=== PATIENT | male | born 1950 | race Caucasian/White ===

== ENCOUNTER → 2017-01-26 | Outpatient (CLI) | payer MEDICARE, BC ==
[2017-01-26 09:27] LABS: Blood Urea Nitrogen 19 mg/dL (9-20); Non-African American GFR(MDRD) >60 (>60 ml/min/1.73 sqM)
--- NOTE | 2017-01-26 10:59 | MR ---
EXAMINATION TYPE: MR lumbar spine wo/w con DATE OF EXAM: 01/26/2017 10:44 AM COMPARISON: NONE HISTORY: osteoarthritis of spine w/radiculopathy per order, prior surgery 1989 with new back pain cau sing left leg pain for 4 weeks per patient. TECHNIQUE: Multiplanar, multisequence images of the lumbar spine is performed without and with IV contrast, util izing 20 mL intravenous MultiHance FINDINGS: Sagittal images of the lumbar spine show vertebral body heights and alignment to appear sat isfactory. There is multilevel disc desiccation. There is advanced disc space narrowing L3-L4 level. There is mild to moderate anterior spurring with heterogeneous increased T1 and T2 signal consistent with Modic type II degenerative change at this level most pronounced anteriorly. There is moderate di sc space narrowing L2-L3 and L4-L5 levels. There is mild disc space narrowing L5-S1 level. Multilevel vacuum disc phenomenon is seen in the mid to lower lumbar spine. Multilevel small posterior disc her niations are seen at these levels on sagittal images. The conus medullaris is normal in position and signal ending at mid L1 vertebral body level. Additional mild multilevel anterior spurring. There is additional heterogeneous endplate changes most pronounced anteriorly at T11-T12 level. No suspicious postcontrast enhancement is seen. Axial images show the T12-L1 level to appear within normal limits. Axial images at L1-L2 level show mild broad disc bulge and mild facet degenerative changes bilaterall y but spinal canal is preserved and bilateral neural foramina are patent. Axial images at L2-L3 level show mild/moderate broad-based posterior disc protrusion mildly effacing anterior thecal sac and mild facet degenerative changes bilaterally. There is mild bilateral anterior inferior neural foraminal narrowing at this level identified. Axial images at L3-L4 level show mild to moderate facet degenerative changes and ligament flavum hype rtrophy effacing posterior lateral thecal sac on axial image 13. There is moderate broad-based aircraft launch and recovery technician ior disc protrusion effacing anterior thecal sac. There is mild to moderate bilateral anterior inferi or neural foraminal narrowing at this level identified. Axial images at L4-L5 level show moderate facet degenerative changes and ligamentum flavum hypertroph y with effacement of the posterior lateral thecal sac bilaterally on axial image 8. There is mild bro ad disc bulge mildly effacing anterior thecal sac. There is mild bilateral anterior inferior neural f oraminal narrowing at this level identified. Right-sided laminectomy defect is seen best on axial saravanan ge 6. Axial images at L5-S1 level show mild to moderate facet degenerative changes bilaterally. There is le ft paracentral disc protrusion. There is mild to moderate bilateral anterior inferior neural foramina l narrowing at this level identified. There is partial visualization of a round T2 hyperintense lesion upper pole right kidney measuring at least 6.8 cm anterior posterior dimension likely reflecting large simple cyst. Consider renal ultras ound correlation due to size and incomplete visualization on MRI. There are additional scattered subc entimeter simple appearing cysts seen bilaterally. IMPRESSION: Multilevel degenerative change in the mid to lower lumbar spine as detailed above. Right- sided laminectomy defect is noted in lower lumbar spine. No suspicious enhancement is noted. Attentio n to right kidney upper pole level as noted above.
== END | disposition home or self-care (01) ==
LOC: RADMRIMAIN 08:49
PROVIDERS: ATTEND Physician Assistant
DX: M47.26 Other spondylosis with radiculopathy, lumbar region (principal); Z98.890 Other specified postprocedural states
CPT/HCPCS: 82565; 84520; 72158; A9577

== ENCOUNTER → 2020-06-24 | Outpatient (CLI) | payer MEDICARE ==
[2020-06-24 18:25] LABS: African American GFR (CKD) >90 (>60 ml/min/1.73 sqM); Blood Urea Nitrogen 18 mg/dL (9-20); Non-African American GFR(CKD) >90 (>60 ml/min/1.73 sqM)
--- NOTE | 2020-06-24 23:31 | CT ---
EXAMINATION TYPE: CT abdomen pelvis w con DATE OF EXAM: 06/24/2020 COMPARISON: None INDICATION: hematuria DLP: 1908 mGycm, Automated exposure control for dose reduction was used. CONTRAST: 100 mL of Isovue 300. Study performed without Oral Contrast TECHNIQUE: Axial images were obtained from above the diaphragm to the pubic rami in the axial plane a t 5 mm thick sections. Reconstructed images are reviewed on the computer in the coronal plane. FINDINGS: Limited CT sections are obtained the lung bases. The lung bases are clear. CT ABDOMEN: Liver: There is a 0.9 cm cyst at superior right lobe liver. A 1.4 cm cyst measuring 16 Hounsfield uni ts is in the mid posterior lateral right lobe liver. Spleen: Normal Pancreas: Normal Adrenal glands: The adrenal glands are normal. Gallbladder: Normal Kidneys: No masses are evident. No hydronephrosis is present. There is a 9.2 cm cyst measuring 7 Ho unsfield units in the superior right kidney. Couple of tiny cortical renal cysts are present on the r ight kidney. There are nonobstructing renal stones within the left inferior pole kidney measuring 0.8 -0.7 cm. Nonobstructing posterior lateral left renal stone measures 0.4 cm mid left kidney. Delayed images were obtained through the kidneys, cortical renal cysts are better delineated on the delayed i mages. Aorta: Vascular calcification is within the aorta. Inferior vena cava: Normal. CT PELVIS: There is a periumbilical hernia containing mesenteric fat. Opening through the abdominal w all is 2.5 cm. Structure fat-containing inguinal hernias are present bilaterally slightly larger on t he left. Loops of bowel within the abdomen and pelvis are normal. There are loops of bowel which are incom pletely distended or lack oral contrast limiting their evaluation. Appendix: Not identified. No suspicious tubular structures or inflammatory changes are evident. Urinary bladder: Normal. Genitourinary structures: Status somewhat prominent. Osseous structures: No suspicious lytic or sclerotic lesions. Degenerative disc changes present L5-S1 . Additional degenerative disc changes are within the mid lumbar spine. IMPRESSIONS: 1. Large right renal cyst measuring 7 Hounsfield units suggestive for a simple cyst. Additional smal l cortical renal cysts. Present. 2. Nonobstructing left renal stones. Probable hepatic cysts. 3. Fat-containing inguinal and periumbilical hernias.
== END | disposition home or self-care (01) ==
LOC: RADCTMAIN 17:36
PROVIDERS: ATTEND Urology
DX: N28.1 Cyst of kidney, acquired (principal); N20.0 Calculus of kidney; K40.90 Unilateral inguinal hernia, without obstruction or gangrene, not specified as recurrent; K42.9 Umbilical hernia without obstruction or gangrene; R31.0 Gross hematuria
CPT/HCPCS: 82565; 84520; 74177; 36415; Q9967

== ENCOUNTER → 2020-07-16 | Outpatient (CLI) | payer MEDICARE ==
[2020-07-16 14:36] LABS: Basophils # (A) 0.1 k/uL (0-0.2); Basophils % (A) 1 %; Eosinophils # (A) 0.2 k/uL (0-0.7); Eosinophils % (A) 2 %; HCT 44.7 % (39.0-53.0); HGB 14.7 gm/dL (13.0-17.5); Lymphocytes # (A) 1.8 k/uL (1.0-4.8); Lymphocytes % (A) 28 %; MCH 28.9 pg (25.0-35.0); MCHC 32.8 g/dL (31.0-37.0); MCV 88.2 fL (80.0-100.0); Mean Platelet Volume 7.2; Monocytes # (A) 0.5 k/uL (0-1.0); Monocytes % (A) 8 %; Neutrophils # (A) 3.8 k/uL (1.3-7.7); Neutrophils % (A) 58 %; Platelet Count 214 k/uL (150-450); RBC 5.07 m/uL (4.30-5.90); RDW 12.9 % (11.5-15.5); WBC 6.6 k/uL (3.8-10.6)
[2020-07-16 14:39] LABS: African American GFR (CKD) >90 (>60 ml/min/1.73 sqM); Anion Gap 6 mmol/L; Blood Urea Nitrogen 15 mg/dL (9-20); Carbon Dioxide 27 mmol/L (22-30); Chloride 104 mmol/L (98-107); Glucose 91 mg/dL (74-99); Non-African American GFR(CKD) >90 (>60 ml/min/1.73 sqM); Potassium 3.9 mmol/L (3.5-5.1); Sodium 137 mmol/L (137-145)
== END | disposition home or self-care (01) ==
LOC: LABPAT 13:10
PROVIDERS: ATTEND Urology
DX: Z01.818 Encounter for other preprocedural examination (principal); N20.0 Calculus of kidney; I10 Essential (primary) hypertension
CPT/HCPCS: 36415; 80048; 85025; 93005

== ENCOUNTER 2020-07-23 07:09 | Day surgery (SDC) | payer MEDICARE ==
[2020-07-22 12:50] VITALS: BMI 33.1
--- NOTE | 2020-07-23 06:34 | P.GSHP ---
History of Present Illness H&P Date: 07/16/20 Chief Complaint: Gross hematuria The patient is a 69-year-old white male with no prior history of urolithiasis. He recently presented with gross hematuria. CT scan revealed left renal calculi measuring up to 8 mm in size. This is presumed to be the source of the hematuria. He has elected to undergo ureteroscopic removal of the calculi. - Constitutional Constitutional: Denies chills, Denies fever - Genitourinary (Female) Genitourinary: Reports hematuria, Denies dysuria, Denies flank pain Past Medical History - Past Family History Mother Family Medical History: Cancer Medications and Allergies Home Medications Medication Instructions Recorded Confirmed Type Amoxicillin/Potassium Clav 1 tab PO Q12HR 07/22/20 07/22/20 History [Augmentin 875-125 Tablet] Aspirin 81 mg PO DAILY 07/22/20 07/22/20 History Atorvastatin [Lipitor] 10 mg PO DAILY 07/22/20 07/22/20 History Fluticasone Nasal [place] [Flonase 2 spr EA NOSTRIL DAILY 07/22/20 07/22/20 History Nasal [place]] Ibuprofen [Motrin] 800 mg PO Q8H PRN 07/22/20 07/22/20 History Losartan [Cozaar] 50 mg PO HS 07/22/20 07/22/20 History Salmeterol 50 mcg [Serevent Diskus] 1 puff INHALATION HS 07/22/20 07/22/20 History Vit C/E/Zn/Coppr/Lutein/Zeaxan 1 each PO DAILY 07/22/20 07/22/20 History [Preservision Areds 2 Softgel] amLODIPine [Norvasc] 10 mg PO HS 07/22/20 07/22/20 History hydroCHLOROthiazide [Hydrodiuril] 12.5 mg PO DAILY 07/22/20 07/22/20 History Allergies Allergy/AdvReac Type Severity Reaction Status Date / Time No Known Allergies Allergy Verified 07/22/20 12:57 Surgical - Exam - General well developed, well nourished, no distress - Neck no masses, trachea midline - Respiratory normal respiratory effort - Abdomen Abdomen: soft, non tender, no guarding, no rigid, no rebound - Genitourinary normal penis with no external lesions, testicles non-tender - Psychiatric oriented to time, oriented to person, oriented to place, speech is normal, memory intact Results - Imaging CT scan - abdomen: report reviewed, image reviewed Assessment and Plan (1) Calculus of kidney Status: Acute Code(s): N20.0 - CALCULUS OF KIDNEY SNOMED Code(s): 86608240 Plan: Cystoscopy, left ureteroscopy with Holmium laser lithotripsy, possible stone basketing, left ureteral stent insertion. The patient requests that a string be attached to the stent if appropriate. The procedure is been reviewed in detail with the patient. He has been made aware of potential risks, which include anesthesia, bleeding, infection, and ureteral injury. Given the stone burden, he is aware that he may require a secondary procedure.
[~2020-07-23 07:09] MED LIST: DEXAMETHASONE SOD PHOSPHATE 10 MG/ML 1 ML VIAL IV ONE; LACTATED RINGERS 1,000 ML IV SCH; LIDOCAINE 1% (10MG/ML) FOR IV START INTRADERMA PRN; MORPHINE SULFATE 2 MG/ML SYRINGE IV PRN; ONDANSETRON 4 MG/2 ML VIAL IVP PRN
[2020-07-23 07:36] VITALS: RESP 16
--- NOTE | 2020-07-23 07:41 | XR ---
EXAMINATION TYPE: XR KUB DATE OF EXAM: 07/23/2020 7:24 AM CLINICAL HISTORY: Left-sided kidney stones, presurgical study. TECHNIQUE: Two supine KUB images of the abdomen are obtained. COMPARISON: CT abdomen and pelvis June 24, 2020 FINDINGS: There are persistent 2 lower pole left renal calculi measuring up to 8 mm in size long axis redemonstrated. No right-sided nephrolithiasis. Bulging of the upper to mid pole lateral right renal cortex corresponds with partially exophytic large simple thin-walled cyst. Right-sided pelvic phlebo liths are redemonstrated. Overall nonobstructive bowel gas pattern. Multilevel spurring in the spine redemonstrated IMPRESSION: As above.
[2020-07-23] MEDS ORDERED: fentaNYL (PF) 50 MCG/ML 2 ML AMP ONE (09:19)
[2020-07-23] MEDS ORDERED: ROCURONIUM BROMIDE 10 MG/ML 5 ML VIAL IV ONE (09:19)
[2020-07-23] MEDS ORDERED: SUCCINYLCHOLINE CHLORIDE 100 MG/5 ML SYR IV ONE (09:19)
[2020-07-23] MEDS ORDERED: PROPOFOL 10 MG/ML 20 ML VIAL IV ONE (09:19)
[2020-07-23] MEDS ORDERED: LIDOCAINE 1% INJ 10MG/ML (20 ML MDV) ONE (09:19)
[2020-07-23] MEDS ORDERED: MIDAZOLAM 2 MG/2 ML VIAL ONE (09:19)
[2020-07-23] MEDS ORDERED: IOPAMIDOL-370 50ML BTL MISCELLANE ONE (09:50)
[2020-07-23 11:12] VITALS: TEMP 97.2
--- NOTE | 2020-07-23 11:16 | P.OP ---
Date of Procedure: 07/23/20 Preoperative Diagnosis: Left renal calculi Postoperative Diagnosis: Same, Left UPJ obstruction Procedure(s) Performed: Cystoscopy, balloon dilation of left ureteropelvic junction, left ureteroscopy with Holmium laser lithotripsy, left ureteral stent insertion Anesthesia: GETA Surgeon: Jimi Troncoso Estimated Blood Loss (ml): 20 IV fluids (ml): 1,300 Pathology: none sent Condition: stable Disposition: PACU Indications for Procedure: The patient is a 69-year-old white male with no prior history of urolithiasis. He recently presented with gross hematuria. CT scan revealed left renal calculi measuring up to 8 mm in size. This is presumed to be the source of the hematuria. He has elected to undergo ureteroscopic removal of the calculi. Operative Findings: 1) Small caliber ureter with left UPJ obstruction. 2) 4-5 mm left mid pole calculus, 2 left lower pole calculi measuring 7-8 mm in size. All fragmented completely. Description of Procedure: The patient was taken to the operating room and placed in the dorsolithotomy position, with legs supported in Eren stirrups. The external genitalia was prepped and draped sterilely. The 30 lens was used to introduce the 21-Sinhala Belcher cystoscopic sheath through the urethra and into the bladder under direct vision. The prostatic urethra showed evidence of lateral lobe enlargement with visual occlusion. The bladder was examined in its entirety. Both ureteral orifices were normal anatomic location and configuration, and clear urine effluxed from both. No tumors or foreign bodies were seen. A 0.038 inch Glidewire was passed through the cystoscope. The left ureteral orifice was cannulated, and the Glidewire was advanced up to the left renal pelvis. An 11/13-Sinhala ureteral access catheter was passed over the wire, up to the proximal ureter. The Belcher Litigainra flexible ureteroscope was passed through the ureteral access catheter sheath. The ureter showed evidence of a mucosal tear resulting from the ureteral access catheter. The UPJ was small in caliber, and would not allow passage of the ureteroscope into the renal pelvis. Therefore, the Glidewire was passed through the ureteroscope, which was removed, and an 18-Sinhala balloon dilating catheter was used to dilate the UPJ. Ureteroscopy was then performed. Each calyx was examined. A 4-5 mm calculus was located within a mid pole calyx. 2 lower pole calculi were identified in separate calyces, each measuring 7-8 mm in size. The 272 micron Holmium laser probe was passed through the ureteroscope, and lithotripsy was performed. All 3 calculi were fragmented completely, using a combination of dusting and fragmenting. This was done until there were no residual calculus fragments exceeding 1-2 mm in size. The Glidewire was passed through the ureteroscope, which was then removed along with the ureteral access catheter sheath. The Glidewire was backloaded into the cystoscope, which was passed into the bladder. A 26 cm, 6-Sinhala double-J ureteral stent was placed over the wire. A stent positioning was verified fluoroscopically and endoscopically. The bladder was emptied and the cystoscope removed. The patient tolerated the procedure well and was taken to the recovery room in stable condition. [facility] [place] Report: Procedure Acuity: Elective Stone Size and Location: Two 7-8 mm left lower pole renal calculi Ureteral Dilation: Balloon Dilation Ureteral Access Sheath Used: Yes Stone Sent for Analysis: No All Stones/Fragments Were Removed with a Basket: No Complications: No Preoperative Antibiotics Given: Yes Stent Placed: Yes If Stent Placed, Was String Left Attached: No If Stent Placed, When is it to be Removed: 1 month Discharge Medications: Tamsulosin
[2020-07-23] MEDS ORDERED: HYDROmorphone 0.5 MG/0.5 ML SYRINGE IVP ONE (11:34)
--- NOTE | 2020-07-23 11:42 | FL ---
Fluoroscopy HISTORY: Left kidney stones 57 seconds fluoroscopy time supplied to the referring clinician. 3 intraoperative C-arm images docum ent the procedure. See dictated report from urology.
[2020-07-23 12:36] VITALS: BP 143/81; PULSE 71
== END 2020-07-23 12:54 | disposition home or self-care (01) ==
LOC: OR 07:09
PROVIDERS: ATTEND Urology
DX: N20.0 Calculus of kidney (principal); N13.5 Crossing vessel and stricture of ureter without hydronephrosis; I10 Essential (primary) hypertension; Z80.9 Family history of malignant neoplasm, unspecified; Z79.2 Long term (current) use of antibiotics; Z79.82 Long term (current) use of aspirin; Z79.51 Long term (current) use of inhaled steroids; Z79.1 Long term (current) use of non-steroidal anti-inflammatories (NSAID); Z79.899 Other long term (current) drug therapy; Z86.19 Personal history of other infectious and parasitic diseases; Z96.653 Presence of artificial knee joint, bilateral
CPT/HCPCS: 74018; 52356; C2625; C1769; J2250; J1100; J2405; J0690; J2001; J3010; J0330; J2704; J1170; Q9967

== ENCOUNTER → 2020-09-22 | Outpatient (CLI) | payer MEDICARE ==
--- NOTE | 2020-09-22 16:32 | XR ---
EXAMINATION TYPE: XR KUB DATE OF EXAM: 09/22/2020 8:13 AM CLINICAL HISTORY: Stones. Follow-up after kidneys unremarkable. TECHNIQUE: Supine images of the abdomen and pelvis were obtained COMPARISON: Abdominal radiograph 07/23/2020. CT abdomen pelvis 06/24/2020. FINDINGS: The previously demonstrated left renal calculi on 07/23/2020 are no longer seen on current e xam. Right pelvic phlebolith redemonstrated. Redemonstrated large exophytic right renal cyst. Nonspec ific bowel gas pattern. Degenerative changes of the spine. IMPRESSION: Previously demonstrated left renal calculi are no longer seen on current exam.
== END | disposition home or self-care (01) ==
LOC: RADXRMAIN 07:53
PROVIDERS: ATTEND Urology
DX: N20.0 Calculus of kidney (principal)
CPT/HCPCS: 74018

== ENCOUNTER → 2020-09-22 | Outpatient (CLI) | payer MEDICARE ==
--- NOTE | 2020-09-22 14:59 | US ---
EXAMINATION TYPE: US kidneys/renal and bladder DATE OF EXAM: 09/22/2020 COMPARISON: 06/24/2020 CLINICAL HISTORY: 70-year-old male N20.0 CALCULUS OF KIDNEY. History of kidney stones, lithotripsy 5- 6 weeks ago TECHNIQUE: Multiple sonographic images of the kidneys and bladder are obtained. FINDINGS: EXAM MEASUREMENTS: Right Kidney: 11.8 x 5.7 x 4.9 cm Left Kidney: 12.7 x 6.9 x 5.8 cm Right Kidney: Large cyst of the upper pole measuring 9.2 x 9.4 x 10.1cm as seen on patient's prior CT . No hydronephrosis. Left Kidney: Mild hydronephrosis. Bladder: appears wnl Bilateral Jets seen: yes IMPRESSION: 1. Large 10.1 cm simple cyst of the upper pole of the right kidney. 2. Mild left-sided hydronephrosis of unclear etiology.
== END | disposition home or self-care (01) ==
LOC: RADUSWWP 08:25
PROVIDERS: ATTEND Urology
DX: N28.1 Cyst of kidney, acquired (principal); N13.30 Unspecified hydronephrosis
CPT/HCPCS: 76770

== ENCOUNTER → 2021-01-12 | Outpatient (CLI) | payer MEDICARE ==
--- NOTE | 2021-01-12 15:46 | US ---
EXAMINATION TYPE: US kidneys/renal and bladder DATE OF EXAM: 01/12/2021 COMPARISON: NONE CLINICAL HISTORY: N13.0 Hydronephrosis. known hydronephrosis EXAM MEASUREMENTS: Right Kidney: 11.7 x 5.0 x 5.9 cm Left Kidney: 12.3 x 6.2 x 6.3 cm Right Kidney: known lateral simple appearing cyst 9.6 x 9.2 x 9.2cm Left Kidney: mild hydronephrosis Bladder: wnl Bilateral Jets seen: Yes IMPRESSION: 1. Mild left hydronephrosis. 2. Large right simple renal cyst
== END ==
LOC: RADUSWWP 14:05
PROVIDERS: ATTEND Urology
DX: N13.30 Unspecified hydronephrosis (principal); N28.1 Cyst of kidney, acquired
CPT/HCPCS: 76770

== ENCOUNTER → 2021-02-05 | Outpatient (CLI) | payer MEDICARE ==
[~2021-02-05] MED LIST changes: -DEXAMETHASONE SOD PHOSPHATE 10 MG/ML 1 ML VIAL IV ONE; +FUROSEMIDE 10 MG/ML 2 ML VIAL IVP ONE; -LACTATED RINGERS 1,000 ML IV SCH; -LIDOCAINE 1% (10MG/ML) FOR IV START INTRADERMA PRN; -MORPHINE SULFATE 2 MG/ML SYRINGE IV PRN; -ONDANSETRON 4 MG/2 ML VIAL IVP PRN
--- NOTE | 2021-02-05 14:33 | NM ---
EXAMINATION TYPE: NM lasix renogram DATE OF EXAM: 02/05/2021 COMPARISON: Ultrasound 01/12/2021 HISTORY: Left hydronephrosis Following administration of 9.9 mCi Tc 99m MAG3 with 20mg Lasix. Immediate images post injection FINDINGS: Left: 58.2 %. Right: 41.8 %. Max renal flow left: 7 minutes. Max renal flow right: 41.8 minutes. Satisfactory accumulation of radiotracer within both renal collecting systems. Although there is some what blunted uptake and excretion involving the right kidney. After the administration of Lasix, ther e is prompt excretion from both collecting systems. However, there is mild prominence of the left deangelo al collecting system compatible with the recent ultrasound finding. T 1/2 left: 13.9 minutes. T 1/2 right: 25.7 minutes. IMPRESSION: 1. Reduced right renal split function study. 2. Findings suggest mild left hydronephrosis.
== END | disposition home or self-care (01) ==
LOC: RADNMMAIN 12:59
PROVIDERS: ATTEND Urology
DX: N13.30 Unspecified hydronephrosis (principal)
CPT/HCPCS: 78708; A9562

== ENCOUNTER → 2024-11-08 | Outpatient (CLI) | payer MEDICARE ==
[2024-11-08 21:43] LABS: Basophils # (A) 0.07 X 10*3/uL (0.00-0.10); Basophils % (A) 0.7 %; Eosinophils # (A) 0.14 X 10*3/uL (0.04-0.35); Eosinophils % (A) 1.4 %; HCT 48.6 % (39.6-50.0); HGB 15.3 g/dL (13.0-17.0); Lymphocytes # (A) 1.78 X 10*3/uL (0.90-5.00); Lymphocytes % (A) 17.9 %; MCH 28.2 pg (27.0-32.0); MCHC 31.5 g/dL (32.0-37.0); MCV 89.5 FL (80.0-97.0); Mean Platelet Volume 10.1 FL (9.5-12.2); NRBC Per 100 WBC 0 X 10*3/uL (0.00-0.01); Neutrophils # (A) 7.09 X 10*3/uL (1.80-7.70); Neutrophils % (A) 71.3 %; Platelet Count 302 X 10*3/uL (140-440); RBC 5.43 X 10*6/uL (4.40-5.60); RDW 13.4 % (11.5-14.5); WBC 9.95 X 10*3/uL (4.50-10.00)
== END | disposition home or self-care (01) ==
LOC: LABPAT 14:26
PROVIDERS: ATTEND Surgery
DX: Z01.818 Encounter for other preprocedural examination (principal); I44.30 Unspecified atrioventricular block; K40.90 Unilateral inguinal hernia, without obstruction or gangrene, not specified as recurrent
CPT/HCPCS: 85025; 86850; 86900; 86901; 93005

== ENCOUNTER 2024-11-18 12:10 | Day surgery (SDC) | payer MEDICARE ==
--- NOTE | 2024-11-18 07:35 | P.GSHP ---
History of Present Illness H&P Date: 11/18/24 Chief Complaint: Right inguinal hernia 74-year-old male here today for hernia repair. Patient with complaints of pain right groin with area of swelling for the last several months. Went to the ER with what sounded like a possible bowel obstruction a few months ago. No his tory of previous hernias. Non-smoker. Normal BMI. Past Medical History Past Medical History: Eye Disorder, Hearing Disorder / Deafness, Hyperlipidemia, Hypertension, Osteoarthritis (OA) Additional Past Medical History / Comment(s): MACULAR DEGENERATION, kidney stones History of Any Multi-Drug Resistant Organisms: None Reported Past Surgical History: Back Surgery, Joint Replacement Additional Past Surgical History / Comment(s): RIGHT AND LEFT TOTAL KNEE, LAMINECTOMY, left hip replaced 2023, cyst removed right clavicle Past Anesthesia/Blood Transfusion Reactions: No Reported Reaction Smoking Status: Former smoker - Past Family History Mother Family Medical History: Cancer Medications and Allergies Home Medications Medication Instructions Recorded Confirmed Type Aspirin 81 mg PO DAILY 07/22/20 11/13/24 History Atorvastatin [Lipitor] 10 mg PO DAILY 07/22/20 11/13/24 History Fluticasone Nasal [place] [Flonase 2 spr EA NOSTRIL HS 07/22/20 11/13/24 History Nasal [place]] Ibuprofen [Motrin] 800 mg PO Q8H PRN 07/22/20 11/13/24 History Losartan [Cozaar] 50 mg PO HS 07/22/20 11/13/24 History Salmeterol 50 mcg [Serevent Diskus] 1 puff INHALATION HS 07/22/20 11/13/24 History Vit C/E/Zn/Coppr/Lutein/Zeaxan 1 each PO DAILY 07/22/20 11/13/24 History [Preservision Areds 2 Softgel] amLODIPine [Norvasc] 10 mg PO HS 07/22/20 11/13/24 History hydroCHLOROthiazide [Hydrodiuril] 12.5 mg PO DAILY 07/22/20 11/13/24 History Tamsulosin [Flomax] 0.4 mg PO DAILY #30 cap 07/23/20 11/13/24 Rx [place]-3/Dha/Epa/Fish Oil [Fish Oil 1 each PO DAILY 11/13/24 11/13/24 History 1,000 mg Softgel] Allergies Allergy/AdvReac Type Severity Reaction Status Date / Time procaine [From Novocain] Allergy tongue Verified 11/13/24 15:06 swelling Surgical - Exam Physical exam: General: Well-developed, well-nourished HEENT: Normocephalic, sclerae nonicteric Abdomen: Nontender, nondistended, moderate sized right inguinal hernia Extremities: No edema Neuro: Alert and oriented Assessment and Plan (1) Right inguinal hernia Narrative/Plan: 74-year-old male with right inguinal hernia. Will proceed with laparoscopic da Mike assisted repair right inguinal hernia with mesh, possible open, possible bilateral. Risks of bleeding, infection, recurrence, bladder and bowel injury, numbness, nerve injury, conversion to an open procedure were discussed with the patient. The patient understands and wishes to proceed. Status: Acute Code(s): K40.90 - UNIL INGUINAL HERNIA, W/O OBST OR GANGR, NOT SPCF RECUR SNOMED Code(s): 375811979
[~2024-11-18 12:10] MED LIST changes: -FUROSEMIDE 10 MG/ML 2 ML VIAL IVP ONE; +LIDOCAINE 1% (10MG/ML) FOR IV START INTRADERMA PRN; +MIDAZOLAM 2 MG/2 ML VIAL IV PRN; +fentaNYL (PF) 50 MCG/ML 2 ML AMP IVP PRN
[2024-11-18] MEDS: IV FLUID CONTINUATION 1,000 ML IV ONE (12:27)
[2024-11-18] MEDS: ACETAMINOPHEN TAB 500 MG TAB PO PRN (12:31)
[2024-11-18] MEDS: TAMSULOSIN 0.4 MG CAP.ER.24H PO STA ×2 (12:31→15:51)
[2024-11-18] MEDS: DEXAMETHASONE SOD PHOSPHATE 4 MG/ML 1 ML VIAL IV ONE (12:32)
[2024-11-18] MEDS: ONDANSETRON 4 MG/2 ML VIAL IVP ONE (12:32)
[2024-11-18] MEDS: HEPARIN SODIUM,PORCINE 5,000 UNIT/ML 1 ML VIAL SQ PRN (12:33)
[2024-11-18] MEDS: LACTATED RINGERS 1,000 ML IV SCH (12:33)
[2024-11-18] MEDS ORDERED: PHENYLEPHRINE-0.9% NACL SYG 1,000 MCG/10 ML SYRINGE ONE (12:45)
[2024-11-18] MEDS ORDERED: MIDAZOLAM 2 MG/2 ML VIAL ONE (12:45)
[2024-11-18] MEDS ORDERED: HYDROmorphone (PF) 1 MG/ML ONE (12:45)
[2024-11-18] MEDS ORDERED: PROPOFOL 10 MG/ML 20 ML VIAL IV ONE (12:45)
[2024-11-18] MEDS ORDERED: LIDOCAINE 1% INJ 10MG/ML (20 ML MDV) ONE (12:45)
[2024-11-18] MEDS ORDERED: fentaNYL (PF) 50 MCG/ML 2 ML AMP ONE (12:45)
[2024-11-18] MEDS ORDERED: GLYCOPYRROLATE 0.2 MG/ML 2 ML VIAL ONE (12:45)
[2024-11-18] MEDS ORDERED: SUCCINYLCHOLINE CHLORIDE 200 MG/10 ML VIAL IV ONE (12:45)
[2024-11-18] MEDS ORDERED: NEOSTIGMINE 1 MG/ML 10 ML VIAL ONE (12:45)
[2024-11-18] MEDS ORDERED: ROCURONIUM 10 MG/ML (5 ML VIAL) IV ONE (12:45)
[2024-11-18] MEDS: BUPIVACAINE (PF) 0.25% 30 ML VIAL SQ ONE (13:12)
[2024-11-18] MEDS: LACTATED RINGERS 1,000 ML IV ONE (13:30)
[2024-11-18] MEDS ORDERED: traMADol 50 MG TAB PO STA (14:34)
--- NOTE | 2024-11-18 14:37 | P.OP ---
Date of Procedure: 11/18/24 Procedure(s) Performed: PREOPERATIVE DIAGNOSIS: Right inguinal hernia POSTOPERATIVE DIAGNOSIS: Same PROCEDURE: Laparoscopic da Mike assisted repair right inguinal hernia with mesh SURGEON: Dr. Rubio ANESTHESIA: General EBL: 10 cc OPERATIVE PROCEDURE DETAILS: Patient was placed in the operating table in the supine position. The patient was placed under general anesthesia. The abdomen was prepped and draped in usual sterile fashion. A small curvilinear supraumbilical incision was made. The fascia was retracted anteriorly with Bridgette forceps. The Veress needle was inserted. The saline drop test was normal. Insufflation took place to 15 mmHg. An 8 mm trocar was placed into the peritoneal cavity. 2 additional 8 mm trochars were placed in the right upper quadrant and left upper quadrant under visualization. The robotic arms were then brought in and docked into place. The fenestrated bipolar was used in the left arm and the laparoscopic amadou was utilized in the right arm. A 30 8 mm scope was used in the up position. The peritoneal cavity was inspected. The patient had a large right direct inguinal hernia containing a loop of colon. This was able to be reduced without difficulty. The peritoneum was incised in a horizontal fashion cephalad to the internal inguinal ring. Following that careful dissection of the preperitoneal space took place. This took place using both electrocautery, sharp dissection but primarily blunt dissection. Visualization of the pubic tubercle and Hossein's ligament took place medially. Full dissection took place laterally as well. The hernia sac was fully dissected. The patient had a vascular portion of fat coming from the lateral preperitoneal side going into the hernia sac. This had a small branch of the inferior epigastric artery and vein. I used the vessel sealer in order to excise this portion of fat. This was not sent to pathology. There was no visible cord lipoma penetrating through the internal inguinal ring. Once we had adequate space the 16 x 10 cm Progrip mesh was advanced into the preperitoneal space and flattened out appropriately to cover all potential hernia sites. The mesh was sutured medially to the folding edge of Hossein's ligament. This was performed using a absorbable 3-0 V-Loc suture. The peritoneal defect was then closed using a absorbable 2-0 VLok suture. The hernia sac was incorporated into the peritoneal closure to help prevent future recurrence. The pneumoperitoneum was then evacuated. The skin of all 3 sites was closed using a 4-0 Monocryl stitch. Skin glue was then applied. TYPE OF MESH USED: ProGrip extra-large LOCATION OF MESH: Preperitoneal FIXATION: Absorbable 3 oh V-Loc PREOPERATIVE DISCUSSION ON SMOKING CESSASTION: Yes PREOPERATIVE DISCUSSION ON MORBID OBESITY: Yes PREOPERATIVE DISCUSSION ON APPROPRIATE USE OF NARCOTIC USE: Yes PREOPERATIVE EDUCATION: Multi Modal, Smoking Cessation and Weight Loss with BMI over 35. DISPOSITION: Stable to recovery room
[2024-11-18 14:45] VITALS: TEMP 97.7
[2024-11-18] MEDS: HYDROmorphone 0.5 MG/0.5 ML SYRINGE IVP PRN (14:58)
[2024-11-18 15:34] VITALS: RESP 16
[2024-11-18 16:43] VITALS: BP 126/52; PULSE 80
[2024-11-18] MEDS ORDERED: IBUPROFEN 600 MG TAB PO SCH (17:45)
[2024-11-18] MEDS ORDERED: ACETAMINOPHEN TAB 325 MG TAB PO SCH (18:00)
== END 2024-11-18 17:41 | disposition home or self-care (01) ==
LOC: OR 12:10
PROVIDERS: ATTEND Surgery
DX: K40.90 Unilateral inguinal hernia, without obstruction or gangrene, not specified as recurrent (principal); E78.5 Hyperlipidemia, unspecified; I10 Essential (primary) hypertension; M19.90 Unspecified osteoarthritis, unspecified site; H91.90 Unspecified hearing loss, unspecified ear; F10.90 Alcohol use, unspecified, uncomplicated; Z79.51 Long term (current) use of inhaled steroids; Z87.442 Personal history of urinary calculi; Z87.891 Personal history of nicotine dependence; Z79.82 Long term (current) use of aspirin; Z79.899 Other long term (current) drug therapy; Z88.8 Allergy status to other drugs, medicaments and biological substances; Z79.1 Long term (current) use of non-steroidal anti-inflammatories (NSAID)
CPT/HCPCS: 49650; C1781; J2250; J0330; J1644; J1100; J2710; J0690; J2405; J2003; J3010; J1171 ×2; J2704; J2371; J0665; J1596